=== PATIENT | male | born 1985 | race Caucasian/White ===

== ENCOUNTER 2021-02-13 14:09 | Emergency (ER) | payer OTHER, SELFPAY ==
--- NOTE | ~2021-02-13 | CT_ITS ---
EXAMINATION: CT lumbar spine w con DATE: 02/13/2021 19:10 INDICATION: Lumbar paresthesia TECHNIQUE: Computed tomography (CT) of the lumbar spine was performed without intravenous contrast. A utomated exposure control and iterative reconstruction technique were employed. Exam dose: 943.63 mG y-cm total exam DLP. COMPARISON: None FINDINGS: Normal alignment of the lumbar spine. There is posterior spurring and disc bulging and/or herniation at L4-5 and L5-S1. No fracture, spondylolysis or spondylolisthesis or bone destruction.. IMPRESSION: Posterior spurring and disc bulging and/or herniation at L4-5 and L5-S1 Reviewed, dictated and finalized at [facility]. Reviewed, dictated and finalized at [facility].
[2021-02-13 15:13] VITALS: BP 143/82; PULSE 98; RESP 18; TEMP 36.6; O2SAT 99
[2021-02-13 16:35] VITALS: BP 150/90; PULSE 74; RESP 18; O2SAT 99
--- NOTE | 2021-02-13 16:53 | ED.GENADULT ---
HPI - General Adult General Chief complaint: Back Pain/Injury Stated complaint: back pain h/o herniated discs Time Seen by Provider: 02/13/21 16:35 Source: patient Mode of arrival: ambulatory Limitations: no limitations History of Present Illness HPI narrative: Patient is a 35-year-old male who presents with lower extremity paresthesias that have worsened since having an injection in the lower back for chronic low back pain prior Thursday patient is managed by [facility] pain management followed by Dr. Jones. Patient notes immediately after receiving the injections he started having increasing pain. Patient has had these injections in the past and has been followed by pain management with history of chronic low back pain. Patient's last lumbar imaging was a year ago per patient. Patient on arrival notes he has continued to have pain since the injection denies any loss of function in the extremities or any loss of bowel or bladder control. Patient has been taking his gabapentin anti-inflammatory and pain medications as prescribed. Patient denies any recent illness injury Related Data Home Medications Medication Instructions Recorded Confirmed No Home Medications 02/13/21 02/13/21 Allergies Allergy/AdvReac Type Severity Reaction Status Date / Time No Known Allergies Allergy Verified 02/13/21 18:36 Review of Systems Review of Systems: All systems reviewed & are unremarkable except as noted in HPI and below PMFSH Social History Social History (Updated 02/13/21 @ 16:55 by Trace Lazo PA-C) Smoking status: Current every day smoker Gender identity (if verbalized by the patient): Male Exam Narrative: Exam Narrative: GENERAL: Well-appearing, well-nourished, and in no acute distress. HEAD: Normocephalic, atraumatic. EYES: PERRLA and EOMI. ENT: Nares clear, no rhinorrhea or epistaxis. Mucous membranes moist. CHEST: Clear to auscultation. No respiratory distress. No wheezes rales or rhonchi HEART: Regular rate and rhythm. No murmur heard. Normal peripheral pulses. ABDOMEN: Soft, nontender, nondistended EXTREMITIES: Normal range of motion. No edema. Midline and paraspinal lumbar tenderness no erythema or rashes SKIN: Warm, dry, no rash. NEURO: No focal deficits. Alert and oriented x3. Cranial nerves II through XII grossly intact PSYCH: Normal mood and affect. Course Course Emergency Course: Patient presented with low back pain with history of chronic low back pain patient was evaluated will be discharged with plan to follow-up with his primary care and pain management patient feels comfortable with this plan patient with motor and sensory intact and symmetrical in the extremities no bladder or bowel incontinence. Patient notes that he has had bilateral paresthesias which are worsened since his injection last Thursday. Patient denies any new injury or trauma. Patient does not appear distressed. ABCs and vital signs intact and stable. Patient made aware of case findings and treatment plan. Patient feels comfortable with this plan Vital Signs Vital signs: Vital Signs Temperature 97.8 F 02/13/21 15:13 Pulse Rate 98 02/13/21 15:13 Respiratory Rate 18 02/13/21 15:13 Blood Pressure 143/82 H 02/13/21 15:13 Pulse Oximetry 99 02/13/21 15:13 Temperature 97.8 F 02/13/21 15:13 Pulse Rate 74 02/13/21 16:35 Respiratory Rate 18 02/13/21 16:35 Blood Pressure 150/90 H 02/13/21 16:35 Pulse Oximetry 99 02/13/21 16:35 Medical Decision Making MDM Narrative Medical decision making narrative: Patients pain is positional in nature and localized to back. No fever or other significant factors to suggest osteomyelitis or spinal epidural abscess. No symptoms or signs to suggest pain is referred from abdominal or / cardiopulmonary sources. No pulsatile masses noted on exam. Patient ambulates with steady gait and is stable for outpatient management given case findings. Vital Signs Vital Signs:
[2021-02-13] MEDS: KETOROLAC 30 MG/ML VIAL (*BKC) IV PUSH (18:45)
[2021-02-13 18:48] LABS: Basophils Absolute Auto 0.1 K/mm3 (0.0-0.1); Basophils Percent Auto 0.5 % (0.2-1.2); Eosinophils Absolute Auto 0.2 K/mm3 (0-0.3); Eosinophils Percent Auto 1.4 % (0-4.4); Hematocrit 45.3 % (42.0-52.0); Hemoglobin 15.6 g/dL (14.0-18.0); Immature Granulocyte Absolute 0.12 K/mm3 (0.00-0.031); Immature Granulocyte Percent A 1.1 % (0-0.5); Lymphocytes Percent Auto 19.1 % (18.3-44.2); Mean Corpuscular HGB Conc 34.4 g/dl (32-36); Mean Corpuscular Hemoglobin 30.8 pg (26-34); Mean Corpuscular Volume 89.3 fl (80-100); Mean Platelet Volume 9.8 fl (7.4-10.4); Monocytes Percent Auto 9.8 % (2.6-8.5); Neutrophils Absolute Auto 7.1 K/mm3 (1.3-6.7); Neutrophils Percent Auto 68.1 % (45.5-73.1); Platelet Count Result 275 k/mm3 (150-375); Red Blood Count 5.07 M/mm3 (4.6-6.20); Red Cell Distribution Width 12.5 % (11.5-14.5); White Blood Count 10.5 K/mm3 (4.5-10.0)
[2021-02-13 19:04] LABS: Anion Gap 7 mmol/L (8-16); Blood Urea Nitrogen 13 mg/dL (9-20); CRP < 0.5 mg/dL (<1.0); Carbon Dioxide 30 mmol/L (22-30); Chloride 103 mmol/L (98-107); Estimated CRCL calculation 105 ml/min; Estimated Glomerular Filt Rate > 60; Glucose 90 mg/dL (75-110); Potassium 4.2 mmol/L (3.4-5.0); Sodium 140 mmol/L (137-145)
[2021-02-13 19:14] LABS: Estimated CRCL calculation 105 ml/min; Estimated Glomerular Filt Rate > 60
[2021-02-13 19:37] LABS: Erythrocyte Sedimentation Rate 4 mm/hr (0-20)
[2021-02-13 20:36] VITALS: BP 142/78; PULSE 78; RESP 18; O2SAT 99
== END 2021-02-13 20:40 | disposition home or self-care (01) ==
PROVIDERS: Emergency Medicine Emergency Medical Services; Emergency Provider Emergency Medicine; PCP Family Medicine Adolescent Medicine
DX: M54.16 Radiculopathy, lumbar region (principal); G89.29 Other chronic pain; M54.5 Low back pain; M46.07 Spinal enthesopathy, lumbosacral region; F17.200 Nicotine dependence, unspecified, uncomplicated
CPT/HCPCS: 36415; 72132; 80048; 85025; 85652; 86140; 96374; 99284; J1885; Q9967

== ENCOUNTER → 2021-02-27 14:37 | Outpatient (CLI) | payer OTHER, SELFPAY ==
--- NOTE | ~2021-02-27 | MR_ITS ---
EXAMINATION: MR lumbar spine wo con DATE: 02/27/2021 15:27 INDICATION: Bilateral lumbar radiculopathy. Low back pain. TECHNIQUE: Magnetic resonance imaging (MRI) of the lumbar spine was performed without intravenous con trast. Sequences included sagittal T2-weighted FSE, sagittal T2-weighted FS FSE, sagittal T1-weighted FSE, and axial T2-weighted FSE. COMPARISON: Lumbar spine MRI 12/14/2019 FINDINGS: There is 4 degrees levocurvature of lumbar spine. Vertebral body heights are normal. There is mildly decreased disc height at L4-L5 and moderately decreased disc height at L5-S1. The distal sp inal cord signal intensity is normal. The conus medullaris is at T12. The following disc levels are s pecifically discussed: L1-L2: The disc does not extend beyond the endplate margin. There is mild bilateral facet joint osteo arthritis. There is no neural foraminal stenosis. There is no central canal stenosis. L2-L3: The disc does not extend beyond the endplate margin. There is mild bilateral facet joint osteo arthritis. There is no neural foraminal stenosis. There is no central canal stenosis. L3-L4: The disc does not extend beyond the endplate margin. There is mild bilateral facet joint osteo arthritis. There is no neural foraminal stenosis. There is no central canal stenosis. L4-L5: The disc is bulging with superimposed left central extrusion with mass effect on left L5 nerve root in left lateral recess. There is mild bilateral facet joint osteoarthritis. There is moderate r ight and mild left neural foraminal stenosis. There is mild central canal stenosis. L5-S1: The disc is bulging with superimposed central extrusion. There is mild bilateral facet joint o steoarthritis. There is mild bilateral neural foraminal stenosis. There is mild central canal stenosi s. IMPRESSION: 1. Moderate lower lumbar spondylosis, stable from 12/14/2019. Reviewed, dictated and finalized at [facility].
== END ==
PROVIDERS: PCP Family Medicine Adolescent Medicine; Visit Provider Family Medicine Adolescent Medicine
DX: M47.27 Other spondylosis with radiculopathy, lumbosacral region (principal); M48.07 Spinal stenosis, lumbosacral region
CPT/HCPCS: 72148

== ENCOUNTER 2021-08-21 09:44 | Outpatient (CLI) | payer OTHER, SELFPAY ==
--- NOTE | 2021-08-21 11:00 | NEURO_ITS ---
Impression: # Complains of pain in feet while sitting or laying. # Normal nerve conduction study except amplitude drop in responses of peroneal nerves compared to posterior tibial nerves. # Normal needle/EMG exam. # Higher involvement needs to be ruled out. Nerve Conduction Studies Anti Sensory Summary Table Stim Site NR Peak (ms) P-T Amp (?V) Site1 Site2 Delta-P (ms) Dist (cm) José Miguel (m/s) Left Sup Fibular Anti Sensory (Ant Lat Mall) 14 cm 2.9 15.4 14 cm Ant Lat Mall 2.9 16.0 55 Right Sup Fibular Anti Sensory (Ant Lat Mall) 14 cm 3.2 23.6 14 cm Ant Lat Mall 3.2 16.0 50 Left Sural Anti Sensory (Lat Mall) Calf 3.8 30.2 Calf Lat Mall 3.8 16.0 42 Right Sural Anti Sensory (Lat Mall) Calf 3.8 9.3 Calf Lat Mall 3.8 16.0 42 Motor Summary Table Stim Site NR Onset (ms) O-P Amp (mV) Site1 Site2 Delta-0 (ms) Dist (cm) José Miguel (m/s) Left Lateral Plantar Motor (ADM) Med Mall 4.8 0.6 Right Lateral Plantar Motor (ADM) Med Mall 4.3 1.9 Left Peroneal Motor (Vastus Med) Ankle 4.4 0.7 Popit Ankle 9.4 43.0 46 Popit 13.8 0.6 Right Peroneal Motor (Vastus Med) Ankle 4.0 1.4 Popit Ankle 8.3 39.0 47 Popit 12.3 0.9 Left Tibial Motor (Abd Linton Brev) Ankle 4.2 4.9 Knee Ankle 9.6 42.0 44 Knee 13.8 4.1 Right Tibial Motor (Abd Linton Brev) Ankle 4.3 8.0 Knee Ankle 9.0 43.0 48 Knee 13.3 5.6 F Wave Studies NR F-Lat (ms) L-R F-Lat (ms) Left Peroneal (Mrkrs) (EDB) 52.19 0.70 Right Peroneal (Mrkrs) (EDB) 52.89 0.70 Left Tibial (Mrkrs) (Abd Hallucis) 54.77 1.52 Right Tibial (Mrkrs) (Abd Hallucis) 53.25 1.52 EMG Side Muscle Nerve Root Ins Act Fibs Amp Dur Recrt Comment Right AntTibialis Dp Br Fibular L4-5 Nml Nml Nml Nml Nml Right Gastroc Tibial S1-2 Nml Nml Nml Nml Nml Right Fibularis Long Sup Br Fibular L5-S1 Nml Nml Nml Nml Nml Right Flex Dig Long Tibial L5-S2 Nml Nml Nml Nml Nml Right Ext Dig Brev Dp Br Fibular L5, S1 Nml Nml Nml Nml Nml Left AntTibialis Dp Br Fibular L4-5 Nml Nml Nml Nml Nml Left Gastroc Tibial S1-2 Nml Nml Nml Nml Nml Left Fibularis Long Sup Br Fibular L5-S1 Nml Nml Nml Nml Nml Left Flex Dig Long Tibial L5-S2 Nml Nml Nml Nml Nml Left Ext Dig Brev Dp Br Fibular L5, S1 Nml Nml Nml Nml Nml MTDD
== END 2021-08-21 09:45 | disposition home or self-care (01) ==
LOC: ANHNEURO 09:45
PROVIDERS: PCP Family Medicine Adolescent Medicine; Visit Provider Family Medicine Adolescent Medicine
DX: M54.32 Sciatica, left side (principal); R20.2 Paresthesia of skin
CPT/HCPCS: 95886; 95911

== ENCOUNTER 2023-04-08 22:09 | Emergency (ER) | payer BC, SELFPAY ==
--- NOTE | ~2023-04-08 | XR_ITS ---
EXAMINATION: XR chest 2V Exam Date/Time: 04/08/2023 22:20 CDT HISTORY: cp, sob,HTN, SMOKER Comparison: None. RESULT: Lines, tubes, and devices: None. Lungs and pleura: Clear. Cardiomediastinal silhouette: Unremarkable. Other: No acute osseous or upper abdominal finding. IMPRESSION: No acute cardiopulmonary process. Reviewed, dictated and finalized at [facility].
--- NOTE | 2023-04-08 22:11 | ECG_ITS ---
Measurements Intervals [place] Rate: 99 P: 5 [place]: 142 QRS: 11 QRSD: 76 T: 20 QT: 331 QTc: 425 Interpretive Statements SINUS RHYTHM MINIMAL Q WAVES- HIGH LATERAL LEADS BORDERLINE ECG NO PREVIOUS ECG AVAILABLE FOR COMPARISON Electronically Signed On 04-09-2023 8:57:57 CDT by John Keys D.O.
[2023-04-08 22:18] VITALS: BP 157/94; PULSE 107; RESP 16; TEMP 36.7; O2SAT 99
[2023-04-08 22:27] LABS: Basophils Percent Auto 0.3 % (0.2-1.2); Eosinophils Absolute Auto 0.1 K/mm3 (0-0.3); Eosinophils Percent Auto 0.9 % (0-4.4); Hemoglobin 15.4 g/dL (14.0-18.0); Immature Granulocyte Absolute 0.08 K/mm3 (0.00-0.031); Immature Granulocyte Percent A 0.8 % (0-0.5); Lymphocytes Absolute Auto 2.24 K/mm3 (0.9-3.2); Lymphocytes Percent Auto 21.5 % (18.3-44.2); Mean Corpuscular Hemoglobin 30.7 pg (26-34); Mean Corpuscular Volume 87.6 fl (80-100); Monocytes Absolute Auto 0.9 K/mm3 (0.1-0.6); Monocytes Percent Auto 8.1 % (2.6-8.5); Neutrophils Absolute Auto 7.2 K/mm3 (1.3-6.7); Neutrophils Percent Auto 68.4 % (45.5-73.1); Platelet Count Result 315 k/mm3 (150-375); Red Blood Count 5.02 M/mm3 (4.6-6.20); Red Cell Distribution Width 12.6 % (11.5-14.5); White Blood Count 10.4 K/mm3 (4.5-10.0)
[2023-04-08 22:40] LABS: Alanine Aminotransferase 25 U/L (6-50); Albumin Level 4.7 g/dL (3.5-5.1); Alkaline Phosphatase 100 U/L (38-126); Anion Gap 13 mmol/L (8-16); Aspartate Amino Transferase 23 U/L (17-59); Bilirubin,Total 0.4 mg/dL (0.2-1.3); Blood Urea Nitrogen 9 mg/dL (9-20); Calcium 8.7 mg/dL (8.4-10.2); Carbon Dioxide 19 mmol/L (22-30); Chloride 104 mmol/L (98-107); Estimated CRCL calculation 104 ml/min; Estimated Glomerular Filt Rate > 60; Glucose 151 mg/dL (65-110); Lipase 146 U/L (23-300); Potassium 3.6 mmol/L (3.4-5.0); Sodium 136 mmol/L (137-145)
[2023-04-08 22:51] LABS: Troponin I < 0.012 ng/mL (0.000-0.034)
[2023-04-08 23:19] VITALS: BP 157/89; PULSE 82; RESP 17; O2SAT 98
[2023-04-08 23:26] LABS: Partial Thromboplastin Time 29.9 SECONDS (22.3-36.8); Prothrombin Time 13.7 Seconds (11.1-14.7)
[2023-04-08 23:27] VITALS: BP 157/89; PULSE 87; RESP 26; O2SAT 98; O2SAT 99
[2023-04-08 23:31] VITALS: BP 147/90; PULSE 90; RESP 15; O2SAT 100
[2023-04-08 23:40] VITALS: BP 147/90; PULSE 82; RESP 12; O2SAT 99
[2023-04-08 23:46] VITALS: BP 154/91; PULSE 84; RESP 25; O2SAT 99
--- NOTE | 2023-04-08 23:50 | ED.CHESTPAIN ---
HPI - Chest Pain General Chief Complaint: Chest Pain <Analilia Hannah PA-C - Last Filed: 04/09/23 03:10> Stated Complaint: high blood pressure, headace, sob <Analilia Hannah PA-C - Last Filed: 04/09/23 03:10> Time Seen by Provider: 04/08/23 23:34 <Analilia Hannah PA-C - Last Filed: 04/09/23 03:10> History of Present Illness HPI narrative: Patient is a 37-year-old male currently transitioning to female who is currently on estrogen, spironolactone and progesterone here for chest pain and and shortness of breath earlier today. Patient states that he felt lightheaded, had difficulty breathing and had a pressure in his chest. He took his blood pressure noticed it was high in the 170s which prompted his ED evaluation. Since then, his symptoms have improved. He did not take his nighttime amlodipine. He denies any leg swelling, fevers or chills, nausea or vomiting. he denies history of previous similar sensation. Reports lots of life stressor currently but denies any suicidal or homicidal ideation. <Analilia Hannah PA-C - Last Filed: 04/09/23 03:10> Related Data Home Medications: Home Medications Medication Instructions Recorded Confirmed vitamin B complex (B 1 tablet PO DAILY 04/01/22 04/14/23 Complex-Vitamin B12 tablet) ergocalciferol (vitamin D2) 1,250 1,250 mcg PO WEEKLY 03/23/23 04/14/23 mcg (50,000 unit) capsule (Vitamin D2) estradiol 2 mg tablet 2 mg PO DAILY 03/23/23 04/14/23 progesterone micronized 100 mg 100 mg PO QAM 03/23/23 04/14/23 capsule spironolactone 50 mg tablet 50 mg PO DAILY 03/23/23 04/14/23 topiramate 25 mg tablet 50 mg PO DAILY 03/23/23 04/14/23 <JODY Ruff Last Filed: 04/09/23 03:10> Allergies/Adverse Reactions: Allergies Allergy/AdvReac Type Severity Reaction Status Date / Time No Known Allergies Allergy Verified 04/14/23 14:32 <Analilia Hannah PA-C - Last Filed: 04/09/23 03:10> Review of Systems Review of Systems: Gen.: Reports lightheadedness Eyes: Denies eye pain or visual change ENT: Denies congestion Respiratory: reports shortness of breath CV: Reports chest pain GI: Denies abdominal pain nausea, emesis or diarrhea denies burning, urgency, frequency or hematuria Musculoskeletal: Denies back pain or muscle pain Neuro: Denies numbness, tingling, weakness or focal weakness Skin: Denies rash Except as documented, all other systems reviewed and negative <Analilia Hannah PA-C - Last Filed: 04/09/23 03:10> [facility] Past Medical History Medical History: Medical History Family history of lipoma History of herniated intervertebral disc <Analilia Hannah PA-C - Last Filed: 04/09/23 03:10> Surgical History Surgical History: Surgical History History of lumbar surgery 06/19 L4-5 decompression <Analilia Hannah PA-C - Last Filed: 04/09/23 03:10> Social History Social History: Social History (Updated 03/23/23 @ 16:25 by Rose Worrell, CLINICAL BIOSTATISTICIAN) Smoking packs per day: 1 Smoking cigarettes per day: 20.0 Smoking status: Current every day smoker Lack of Transportation: No Difficulty w/ Childcare or Family Care: No Living arrangements: with family Additional living arrangements comments: and child Gender identity (if verbalized by the patient): Other Additional gender identity comments: genetically male identifies as female undergoing gender affirming therapy Sexual Orientation (if Verbalized by the Patient): Straight or Heterosexual <Analilia Hannah PA-C - Last Filed: 04/09/23 03:10> Exam Narrative: APPEARANCE: anxious appearing. Head: Normocephalic and atraumatic. EYES: PERRLA/EOMI, conjunctivae clear NOSE: No nasal drainage EARS: External ear normal in appearance THROAT: Oropharynx is aidan
[2023-04-09] MEDS: LORazepam (*CRX) 0.5 MG TABLET PO (00:12)
[2023-04-09] MEDS: amLODIPine BESYLATE 5 MG TABLET PO (00:12)
[2023-04-09 00:31] VITALS: BP 142/86; PULSE 82; RESP 16; O2SAT 100
[2023-04-09 00:46] VITALS: BP 150/94; PULSE 81; RESP 18; O2SAT 100
[2023-04-09 01:16] VITALS: BP 143/87; PULSE 86; RESP 16; O2SAT 100
[2023-04-09 01:27] LABS: D Dimer 0.33 ug/mL (<0.48)
[2023-04-09 01:31] VITALS: BP 142/77; PULSE 87; RESP 14; O2SAT 99
== END 2023-04-09 01:48 | disposition home or self-care (01) ==
PROVIDERS: Emergency Medicine; Emergency Provider Physician Assistant; PCP Family Medicine Adolescent Medicine
DX: F41.9 Anxiety disorder, unspecified (principal); F17.210 Nicotine dependence, cigarettes, uncomplicated; Z79.890 Hormone replacement therapy; R94.31 Abnormal electrocardiogram [ECG] [EKG]
CPT/HCPCS: 36415; 71046; 80053; 83690; 84484; 85025; 85380; 85610; 85730; 93005; 99284; A9270

== ENCOUNTER 2024-06-16 13:33 | Outpatient (CLI) | payer BC, SELFPAY ==
--- NOTE | ~2024-06-16 | XR_ITS ---
Right Hand Technique: PA and lateral views were obtained. Clinical History: Pain Findings: No acute fracture or dislocation is seen. Osseous alignment is anatomic. Joint spaces are p reserved. Soft tissues are unremarkable. Impression: Unremarkable right hand. Reviewed, dictated and finalized at [facility]. Impression: Unremarkable right hand.
--- NOTE | ~2024-06-16 | XR_ITS ---
Right elbow Technique: AP and lateral views were obtained. Clinical History: Pain Findings: No acute fracture or dislocation is seen. Osseous alignment is anatomic. Joint spaces are p reserved. There is no displacement of the fat pads, and soft tissues are unremarkable. Impression: Unremarkable radiographs. Reviewed, dictated and finalized at location . Impression: Unremarkable radiographs.
== END 2024-06-16 13:34 ==
LOC: MICIMG 13:35
PROVIDERS: PCP Family Medicine Adolescent Medicine; Visit Provider Nurse Practitioner Family
DX: M25.521 Pain in right elbow (principal); M79.641 Pain in right hand
CPT/HCPCS: 73070; 73120